=== PATIENT | female | born 1945 | race Caucasian/White ===

== ENCOUNTER → 2023-11-22 10:58 | Outpatient (REF) | payer MEDICARE, SELFPAY ==
[2023-11-22 12:13] LABS: % Basophils 0.8 % (0-2); % Immature Granulocytes 0.2 % (0-0.5); % Lymphocytes 28.3 % (20.5-51.1); % Neutrophils 57.7 % (42.2-75.2); Absolute Eosinophils 0.1 10^3/uL (0-0.7); Absolute Lymphocytes 1.4 10^3/uL (1.2-3.4); Absolute Monocytes 0.6 10^3/uL (0.1-0.6); Absolute Neutrophils 2.9 10^3/uL (1.4-6.5); Hematocrit 42.7 % (37.0-47.0); Hemoglobin 14.2 g/dL (12.0-16.0); Mean Corp Hgb Conc. 33.3 g/dL (33.0-37.0); Mean Corpuscular Hgb 31.2 pg (27.0-31.0); Mean Corpuscular Volume 93.8 fL (81.0-99.0); Mean Platelet Volume 11.2 fL (7.4-10.4); Nucleated Red Blood Cells % 0 %; Platelet Count 201 10^3/uL (130-400); Red Blood Cell Count 4.55 10^6/uL (4.20-5.40); Red Cell Dist. Width 13.8 % (11.5-14.5)
[2023-11-22 12:36] LABS: Erythrocyte Sed Rate 10 mm/hour (0-20)
[2023-11-22 12:42] LABS: ALT (SGPT) 25 U/L (0-35); AST (SGOT) 33 U/L (14-36); Albumin 4.1 g/dl (3.5-5.0); Alkaline Phosphatase 81 U/L (38-126); Blood Urea Nitrogen 15 mg/dl (7-17); Calcium 9.2 mg/dl (8.4-10.2); Carbon Dioxide 28 mmol/L (22-30); Chloride 106 mmol/L (98-107); Creatine Phosphokinase 289 U/L (30-135); Glucose 90 mg/dl (70-99); HDL Cholesterol 68 mg/dl; Iron 57 ug/dl (37-170); LDL Cholesterol, Calculated 102 mg/dl; Potassium 4.5 mmol/L (3.5-5.1); Sodium 137 mmol/L (135-145); Total Bilirubin 0.8 mg/dl (0.2-1.3); Total Cholesterol 182 mg/dl (50-199); Total Protein 6.7 g/dl (6.3-8.2); Triglyceride 63 mg/dl (10-149); Very Low Density Lipoprotein 12 mg/dl (0-30); eGFR > 60.00
[2023-11-22 12:46] LABS: Urine Albumin Negative (Neg - Trace); Urine Bilirubin Negative (Negative); Urine Character Clear (Clear); Urine Color Yellow; Urine Glucose Negative (Negative); Urine Ketone Negative (Negative); Urine Leukocyte Negative (Negative); Urine Nitrite Negative (Negative); Urine Occult Blood Negative (Negative); Urine Specific Gravity 1.015 (<1.030); Urine Urobilinogen Negative (Neg - 1+)
[2023-11-22 12:51] LABS: Percent Saturation 20 % (20-50); Total Iron Binding Capacity 275 ug/dl (265-497)
[2023-11-22 13:01] LABS: Vitamin D, 25-OH*** 51.1 ng/mL (30-80)
[2023-11-22 13:15] LABS: TSH Reflex To Free T4 1.87 uIU/ml (0.47-4.68)
[2023-11-22 13:19] LABS: Ferritin 47.2 ng/ml (11.1-264.0)
[2023-11-22 13:58] LABS: Folate > 20.0 ng/ml (2.76-20); Vitamin B12 826 pg/ml (239-931)
[2023-11-23 16:43] LABS: Syphilis/T. pallidum Ab Reflex Negative (Negative)
[2023-11-24 16:20] LABS: Lyme Antibody Screen, EIA Negative (Negative)
[2023-11-24 21:43] LABS: Myoglobin, Urine <1 mg/L (0-1)
[2023-11-24 22:44] LABS: Myoglobin, Serum 85 ng/mL (<=58)
[2023-11-25 05:10] LABS: ANA, IgG Reflex to HEp-2 None Detected (None Detected)
[2023-11-26 03:55] LABS: Albumin 4.22 g/dL (3.75-5.01); Alpha 1 Globulin 0.26 g/dL (0.19-0.46); Alpha 2 Globulin 0.64 g/dL (0.48-1.05); SPEP IFE Reflex Not Done
[2023-11-29 04:30] LABS: Aldolase 5.2 U/L (1.2-7.6)
== END ==
LOC: REG 10:58
PROVIDERS: ATTENDING PHYSICIAN Nurse Practitioner Primary Care
DX: I10 Essential (primary) hypertension (principal); R25.2 Cramp and spasm; R74.8 Abnormal levels of other serum enzymes; G57.93 Unspecified mononeuropathy of bilateral lower limbs; E55.9 Vitamin D deficiency, unspecified; R41.3 Other amnesia
CPT/HCPCS: 36415; 80053; 80061; 81003; 82085; 82306; 82550; 82607; 82728; 82746; 83540; 83550; 83874; 84155; 84165; 84443; 85025; 85652; 86038; 86140; 86618; 86780

== ENCOUNTER → 2023-11-27 11:04 | Outpatient (REF) | payer MEDICARE, SELFPAY | LOC: WDC 11:04 | PROVIDERS: ATTENDING PHYSICIAN Nurse Practitioner Primary Care; FAMILY PHYSICIAN Family Medicine | DX: Z12.31 Encounter for screening mammogram for malignant neoplasm of breast (principal); Z85.3 Personal history of malignant neoplasm of breast | CPT/HCPCS: 77063; 77067 ==

== ENCOUNTER → 2023-12-10 11:16 | Outpatient (REF) | payer MEDICARE, SELFPAY | LOC: RAD 11:16 | PROVIDERS: ATTENDING PHYSICIAN Nurse Practitioner Primary Care | DX: M85.80 Other specified disorders of bone density and structure, unspecified site (principal); M85.89 Other specified disorders of bone density and structure, multiple sites | CPT/HCPCS: 77080 ==

== ENCOUNTER → 2023-12-11 11:06 | Outpatient (REF) | payer MEDICARE, SELFPAY | LOC: RCS 11:06 | PROVIDERS: ATTENDING PHYSICIAN Nurse Practitioner Primary Care | DX: I77.810 Thoracic aortic ectasia (principal); I35.1 Nonrheumatic aortic (valve) insufficiency; I49.1 Atrial premature depolarization | CPT/HCPCS: 93306 ==

== ENCOUNTER → 2023-12-13 10:15 | Outpatient (REF) | payer MEDICARE, SELFPAY | LOC: RCS 10:15 | PROVIDERS: ATTENDING PHYSICIAN Nurse Practitioner Primary Care | DX: I10 Essential (primary) hypertension (principal); R00.2 Palpitations; I49.1 Atrial premature depolarization | CPT/HCPCS: 93225; 93226 ==

== ENCOUNTER → 2023-12-17 11:28 | Outpatient (REF) | payer MEDICARE, SELFPAY | LOC: PAVMRI 11:28 | PROVIDERS: ATTENDING PHYSICIAN Nurse Practitioner Primary Care | DX: Z85.3 Personal history of malignant neoplasm of breast (principal); G57.93 Unspecified mononeuropathy of bilateral lower limbs; R32 Unspecified urinary incontinence; R15.9 Full incontinence of feces; M54.16 Radiculopathy, lumbar region; M54.50 Low back pain, unspecified | CPT/HCPCS: 72158; A9575 ==

== ENCOUNTER → 2024-09-01 07:21 | Outpatient (REF) | payer MEDICARE, SELFPAY ==
[2024-09-01] MEDS: LEXISCAN 0.4 MG IV (10:04)
[2024-09-01] MEDS: AMINOPHYLLINE 75 MG IV (10:04)
[2024-09-01] MEDS: FLUSH (NSS) 1 FLUSH IV (10:05)
== END ==
LOC: RCS 07:21
PROVIDERS: ATTENDING PHYSICIAN Nurse Practitioner Primary Care
DX: E78.2 Mixed hyperlipidemia (principal); I49.1 Atrial premature depolarization; R07.89 Other chest pain
CPT/HCPCS: 78452; 93017; A9500; J2785

== ENCOUNTER → 2024-09-06 10:58 | Outpatient (REF) | payer MEDICARE, SELFPAY ==
[2024-09-06 13:01] LABS: % Basophils 1.2 % (0-2); % Eosinophils 2.6 % (0-6); % Lymphocytes 26.4 % (20.5-51.1); % Monocytes 10.5 % (1.7-9.3); % Neutrophils 59.3 % (42.2-75.2); Absolute Basophils 0.1 10^3/uL (0-0.2); Absolute Eosinophils 0.1 10^3/uL (0-0.7); Absolute Lymphocytes 1.3 10^3/uL (1.2-3.4); Absolute Monocytes 0.5 10^3/uL (0.1-0.6); Hematocrit 37.6 % (37.0-47.0); Hemoglobin 12.4 g/dL (12.0-16.0); Mean Corpuscular Hgb 31.2 pg (27.0-31.0); Mean Corpuscular Volume 94.7 fL (81.0-99.0); Mean Platelet Volume 11.5 fL (7.4-10.4); Nucleated Red Blood Cells % 0 %; Platelet Count 213 10^3/uL (130-400); Red Blood Cell Count 3.97 10^6/uL (4.20-5.40)
[2024-09-06 14:03] LABS: Erythrocyte Sed Rate 11 mm/hour (0-20)
[2024-09-06 14:13] LABS: ALT (SGPT) 23 U/L (0-35); AST (SGOT) 28 U/L (14-36); Alkaline Phosphatase 66 U/L (38-126); Blood Urea Nitrogen 20 mg/dl (7-17); Calcium 9.2 mg/dl (8.4-10.2); Carbon Dioxide 26 mmol/L (22-30); Chloride 104 mmol/L (98-107); Creatine Phosphokinase 217 U/L (30-135); Glucose 80 mg/dl (70-99); Potassium 4.5 mmol/L (3.5-5.1); Sodium 139 mmol/L (135-145); Total Bilirubin 0.7 mg/dl (0.2-1.3); Total Protein 6.4 g/dl (6.3-8.2); eGFR > 60.00
[2024-09-06 14:18] LABS: C-Reactive Protein < 5.00 mg/L (0.0-10.00)
[2024-09-06 14:21] LABS: Urine Albumin Negative (Neg - Trace); Urine Bilirubin Negative (Negative); Urine Character Clear (Clear); Urine Color Yellow; Urine Glucose Negative (Negative); Urine Ketone Negative (Negative); Urine Leukocyte Negative (Negative); Urine Nitrite Negative (Negative); Urine Occult Blood Negative (Negative); Urine Urobilinogen Negative (Neg - 1+)
[2024-09-06 14:35] LABS: Free T4 1.14 ng/dl (0.78-2.19); Vitamin D, 25-OH*** 29.2 ng/mL (30-80)
[2024-09-06 14:48] LABS: TSH 1.08 uIU/ml (0.47-4.68)
[2024-09-06 15:50] LABS: Protein/creatinine Ratio 0.1; Urine Protein 7 mg/dl
[2024-09-07 06:34] LABS: Complement C3 103 mg/dl (88-165)
[2024-09-07 13:47] LABS: Rheumatoid Agglutinin Less Than 10 IU (<10 IU)
[2024-09-08 11:36] LABS: HIV Combo Negative (Negative)
[2024-09-08 12:50] LABS: Quantiferon Mitogen minus NIL 7.34 IU/mL; Quantiferon NIL 0.02 IU/mL; Quantiferon Plus TB2 minus NIL 0.01 IU/mL (<=0.34); Quantiferon TB Gold Plus Negative (Negative)
[2024-09-08 14:31] LABS: Hepatitis B Surface Antigen Negative (Negative)
[2024-09-08 14:48] LABS: Hepatitis B Surface Antibody Negative; Hepatitis C Antibody Negative (Negative)
[2024-09-08 14:56] LABS: Hepatitis A Antibody, Total Negative (Negative)
[2024-09-08 18:25] LABS: CCP Antibody IgG/IgA 3 Units (0-19)
[2024-09-08 18:50] LABS: ds-DNA Ab, IgG Reflex To Titer 11 IU (0-24)
[2024-09-08 19:32] LABS: ANA, IgG Reflex to HEp-2 None Detected (None Detected)
[2024-09-08 19:37] LABS: Smith/RNP (ENA), IgG 2 Units (0-19)
[2024-09-08 22:31] LABS: Aldolase 4.2 U/L (1.2-7.6); Angiotensin-1-converting Enzym 36 U/L (16-85)
[2024-09-09 02:20] LABS: Myeloperoxidase Antibody 0 AU/mL (0-19); Serine Protease-3, IgG 0 AU/mL (0-19)
[2024-09-09 03:22] LABS: Centromere Antibody 0 AU/mL (0-40); SSA 52 (Ro)(ENA) Ab, IgG 1 AU/mL (0-40); SSA 60 (Ro)(ENA) Ab, IgG 0 AU/mL (0-40); SSB (La)(ENA) Ab, IgG 0 AU/mL (0-40); Scleroderma Antibody (Scl-70) 1 AU/mL (0-40)
[2024-09-09 08:42] LABS: Histone Antibody, IgG 0.2 Units (0.0-0.9)
== END ==
LOC: REG 10:58
PROVIDERS: ATTENDING PHYSICIAN Internal Medicine Rheumatology; FAMILY PHYSICIAN Nurse Practitioner Primary Care
DX: R74.8 Abnormal levels of other serum enzymes (principal); M79.10 Myalgia, unspecified site; M47.896 Other spondylosis, lumbar region; M15.0 Primary generalized (osteo)arthritis; M41.9 Scoliosis, unspecified; I10 Essential (primary) hypertension; R53.83 Other fatigue; E55.9 Vitamin D deficiency, unspecified; Z20.5 Contact with and (suspected) exposure to viral hepatitis; Z20.6 Contact with and (suspected) exposure to human immunodeficiency virus [HIV]; Z20.1 Contact with and (suspected) exposure to tuberculosis; Z79.899 Other long term (current) drug therapy
CPT/HCPCS: 36415; 80053; 81003; 82085; 82164; 82306; 82550; 82570; 83516; 84156; 84439; 84443; 85025; 85652; 86038; 86140; 86160; 86200; 86225; 86235; 86430; 86480; 86706; 86708; 86803; 87340; 87389

== ENCOUNTER → 2024-09-22 13:37 | Outpatient (REF) | payer MEDICARE, SELFPAY ==
[2024-09-22 16:04] LABS: Blood Urea Nitrogen 14 mg/dl (7-17); Calcium 9.5 mg/dl (8.4-10.2); Carbon Dioxide 26 mmol/L (22-30); Chloride 105 mmol/L (98-107); Glucose 77 mg/dl (70-99); Potassium 4.6 mmol/L (3.5-5.1); Sodium 141 mmol/L (135-145); eGFR > 60.00
[2024-09-25 06:59] LABS: IgG 858 mg/dl (700-1600)
[2024-09-25 07:16] LABS: IgA 264 mg/dl (70-400); IgM 45 mg/dl (40-230)
== END ==
LOC: REG 13:37
PROVIDERS: ATTENDING PHYSICIAN Nurse Practitioner Primary Care
DX: I10 Essential (primary) hypertension (principal); J06.9 Acute upper respiratory infection, unspecified
CPT/HCPCS: 36415; 80048; 82784

== ENCOUNTER → 2024-09-30 10:50 | Outpatient (REF) | payer MEDICARE, SELFPAY ==
[2024-09-30 11:45] LABS: NT-proBNP 351 pg/ml
[2024-09-30 11:48] LABS: Blood Urea Nitrogen 17 mg/dl (7-17); Calcium 9.6 mg/dl (8.4-10.2); Carbon Dioxide 29 mmol/L (22-30); Chloride 106 mmol/L (98-107); Glucose 80 mg/dl (70-99); Potassium 4.1 mmol/L (3.5-5.1); Sodium 142 mmol/L (135-145); eGFR > 60.00
== END ==
LOC: REG 10:50
PROVIDERS: ATTENDING PHYSICIAN Nurse Practitioner Primary Care; REFERRING PHYSICIAN Internal Medicine Cardiovascular Disease
DX: R06.89 Other abnormalities of breathing (principal); R60.0 Localized edema
CPT/HCPCS: 36415; 71046; 80048; 83880

== ENCOUNTER → 2024-10-03 13:40 | Outpatient (REF) | payer MEDICARE, SELFPAY | LOC: RAD 13:40 | PROVIDERS: ATTENDING PHYSICIAN Nurse Practitioner Primary Care | DX: M79.605 Pain in left leg (principal); M79.89 Other specified soft tissue disorders | CPT/HCPCS: 93970 ==

== ENCOUNTER → 2024-12-04 11:18 | Outpatient (REF) | payer MEDICARE, SELFPAY | LOC: WDC 11:18 | PROVIDERS: ATTENDING PHYSICIAN Nurse Practitioner Primary Care | DX: Z12.31 Encounter for screening mammogram for malignant neoplasm of breast (principal) | CPT/HCPCS: 77063; 77067 ==

== ENCOUNTER 2024-12-14 12:58 | Outpatient (RCR) | payer MEDICARE, SELFPAY | END 2024-12-14 23:59 | disposition home or self-care (01) | LOC: RPT 12:58 | PROVIDERS: ATTENDING PHYSICIAN Pain Medicine Interventional Pain Medicine; FAMILY PHYSICIAN Nurse Practitioner Primary Care | DX: M54.16 Radiculopathy, lumbar region (principal); Z73.6 Limitation of activities due to disability; R26.89 Other abnormalities of gait and mobility; G89.29 Other chronic pain | CPT/HCPCS: 97110; 97163; 97530 ==

== ENCOUNTER 2025-01-15 10:08 | Outpatient (RCR) | payer MEDICARE, SELFPAY | END 2025-01-15 23:59 | disposition home or self-care (01) | LOC: RPT 10:08 | PROVIDERS: ATTENDING PHYSICIAN Pain Medicine Interventional Pain Medicine; FAMILY PHYSICIAN Nurse Practitioner Primary Care | DX: M54.16 Radiculopathy, lumbar region (principal); Z73.6 Limitation of activities due to disability; R26.89 Other abnormalities of gait and mobility; G89.29 Other chronic pain; M51.16 Intervertebral disc disorders with radiculopathy, lumbar region | CPT/HCPCS: 97110; 97112 ==

== ENCOUNTER 2025-02-13 09:20 | Outpatient (RCR) | payer MEDICARE, SELFPAY | END 2025-02-13 23:59 | disposition home or self-care (01) | LOC: RPT 09:20 | PROVIDERS: ATTENDING PHYSICIAN Nurse Practitioner; FAMILY PHYSICIAN Nurse Practitioner Primary Care | DX: N39.46 Mixed incontinence (principal); R15.9 Full incontinence of feces; Z73.6 Limitation of activities due to disability; G62.9 Polyneuropathy, unspecified; M54.9 Dorsalgia, unspecified; Z85.3 Personal history of malignant neoplasm of breast | CPT/HCPCS: 97110; 97161; 97530 ==

== ENCOUNTER 2025-02-13 12:02 | Outpatient (RCR) | payer MEDICARE, SELFPAY | END 2025-02-13 23:59 | disposition home or self-care (01) | LOC: RPT 12:02 | PROVIDERS: ATTENDING PHYSICIAN Pain Medicine Interventional Pain Medicine; FAMILY PHYSICIAN Nurse Practitioner Primary Care | DX: M54.16 Radiculopathy, lumbar region (principal); R26.89 Other abnormalities of gait and mobility (principal); G89.29 Other chronic pain; Z73.6 Limitation of activities due to disability; M51.16 Intervertebral disc disorders with radiculopathy, lumbar region | CPT/HCPCS: 97110; 97112 ==

== ENCOUNTER 2025-03-14 13:11 | Outpatient (RCR) | payer MEDICARE, SELFPAY | END 2025-03-14 23:59 | disposition home or self-care (01) | LOC: RPT 13:11 | PROVIDERS: ATTENDING PHYSICIAN Nurse Practitioner; FAMILY PHYSICIAN Nurse Practitioner Primary Care | DX: N39.46 Mixed incontinence (principal); R15.9 Full incontinence of feces; Z73.6 Limitation of activities due to disability; G62.9 Polyneuropathy, unspecified; Z85.3 Personal history of malignant neoplasm of breast | CPT/HCPCS: 97110; 97112; 97530 ==

== ENCOUNTER 2025-04-11 13:07 | Outpatient (RCR) | payer MEDICARE, SELFPAY | END 2025-04-11 23:59 | disposition home or self-care (01) | LOC: RPT 13:07 | PROVIDERS: ATTENDING PHYSICIAN Nurse Practitioner; FAMILY PHYSICIAN Nurse Practitioner Primary Care | DX: N39.46 Mixed incontinence (principal); R15.9 Full incontinence of feces; Z73.6 Limitation of activities due to disability; G62.9 Polyneuropathy, unspecified; Z85.3 Personal history of malignant neoplasm of breast | CPT/HCPCS: 97110; 97112 ==

== ENCOUNTER 2025-05-02 13:21 | Outpatient (RCR) | payer MEDICARE, SELFPAY | END 2025-05-02 23:59 | disposition home or self-care (01) | LOC: RPT 13:21 | PROVIDERS: ATTENDING PHYSICIAN Nurse Practitioner; FAMILY PHYSICIAN Nurse Practitioner Primary Care | DX: N39.46 Mixed incontinence (principal); R15.9 Full incontinence of feces; Z73.6 Limitation of activities due to disability; G62.9 Polyneuropathy, unspecified; Z85.3 Personal history of malignant neoplasm of breast | CPT/HCPCS: 97110; 97112 ==

== ENCOUNTER 2025-05-22 13:17 | Outpatient (RCR) | payer MEDICARE, SELFPAY | END 2025-05-22 23:59 | disposition home or self-care (01) | LOC: RPT 13:17 | PROVIDERS: ATTENDING PHYSICIAN Nurse Practitioner; FAMILY PHYSICIAN Nurse Practitioner Primary Care | DX: N39.46 Mixed incontinence (principal); R15.9 Full incontinence of feces; Z73.6 Limitation of activities due to disability; G62.9 Polyneuropathy, unspecified; Z85.3 Personal history of malignant neoplasm of breast | CPT/HCPCS: 97014; 97110; 97112; 97140 ==

== ENCOUNTER 2025-07-06 14:06 | Outpatient (RCR) | payer MEDICARE, SELFPAY | END 2025-07-06 23:59 | disposition home or self-care (01) | LOC: RPT 14:06 | PROVIDERS: ATTENDING PHYSICIAN Nurse Practitioner; FAMILY PHYSICIAN Nurse Practitioner Primary Care | DX: N39.46 Mixed incontinence (principal); R15.9 Full incontinence of feces; Z73.6 Limitation of activities due to disability; G62.9 Polyneuropathy, unspecified; Z85.3 Personal history of malignant neoplasm of breast | CPT/HCPCS: 97110; 97140; 97530 ==

== ENCOUNTER → 2025-07-13 09:52 | Outpatient (REF) | payer MEDICARE, SELFPAY ==
[2025-07-13 11:42] LABS: Hematocrit 39.7 % (37.0-47.0); Hemoglobin 13.1 g/dL (12.0-16.0); Mean Corp Hgb Conc. 33.0 g/dL (33.0-37.0); Mean Corpuscular Volume 96.8 fL (81.0-99.0); Nucleated Red Blood Cells % 0 %; Platelet Count 186 10^3/uL (130-400); Red Cell Dist. Width 13.1 % (11.5-14.5)
[2025-07-13 12:11] LABS: ALT (SGPT) 27 U/L (0-35); AST (SGOT) 29 U/L (14-36); Albumin 4.4 g/dl (3.5-5.0); Alkaline Phosphatase 58 U/L (38-126); Blood Urea Nitrogen 15 mg/dl (7-17); Calcium 9.5 mg/dl (8.4-10.2); Carbon Dioxide 29 mmol/L (22-30); Chloride 104 mmol/L (98-107); Glucose 80 mg/dl (70-99); HDL Cholesterol 71 mg/dl; LDL Cholesterol, Calculated 101 mg/dl; Potassium 4.5 mmol/L (3.5-5.1); Sodium 138 mmol/L (135-145); Total Protein 7.1 g/dl (6.3-8.2); Very Low Density Lipoprotein 13 mg/dl (0-30); eGFR > 60.00
[2025-07-13 12:28] LABS: Vitamin D, 25-OH*** 71.3 ng/mL (30-80)
[2025-07-13 13:01] LABS: Vitamin B12 970 pg/ml (239-931)
== END ==
LOC: RAD 09:52
PROVIDERS: ATTENDING PHYSICIAN Obstetrics & Gynecology; OTHER PHYSICIAN Nurse Practitioner; OTHER PHYSICIAN Nurse Practitioner Primary Care
DX: R14.0 Abdominal distension (gaseous) (principal); N39.46 Mixed incontinence; E78.2 Mixed hyperlipidemia; E53.8 Deficiency of other specified B group vitamins; E55.9 Vitamin D deficiency, unspecified; Z85.3 Personal history of malignant neoplasm of breast; I77.810 Thoracic aortic ectasia; I35.1 Nonrheumatic aortic (valve) insufficiency; G57.93 Unspecified mononeuropathy of bilateral lower limbs
CPT/HCPCS: 36415; 76770; 76856; 80053; 80061; 82306; 82607; 84443; 85025

== ENCOUNTER 2025-09-06 17:59 | Outpatient (RCR) | payer MEDICARE, SELFPAY | END 2025-09-06 23:59 | disposition home or self-care (01) | LOC: RPT 17:59 | PROVIDERS: ATTENDING PHYSICIAN Nurse Practitioner; FAMILY PHYSICIAN Nurse Practitioner Primary Care | DX: N39.46 Mixed incontinence (principal); R15.9 Full incontinence of feces; Z73.6 Limitation of activities due to disability; G62.9 Polyneuropathy, unspecified; Z85.3 Personal history of malignant neoplasm of breast | CPT/HCPCS: 97110; 97140; 97530 ==

== ENCOUNTER → 2025-10-08 14:07 | Outpatient (REF) | payer MEDICARE, SELFPAY | LOC: RAD 14:07 | PROVIDERS: ATTENDING PHYSICIAN Nurse Practitioner Primary Care | DX: I77.810 Thoracic aortic ectasia (principal) | CPT/HCPCS: 71275; Q9967 ==

== ENCOUNTER 2025-10-12 13:41 | Outpatient (RCR) | payer MEDICARE, SELFPAY | END 2025-10-12 23:59 | disposition home or self-care (01) | LOC: RPT 13:41 | PROVIDERS: ATTENDING PHYSICIAN Nurse Practitioner; FAMILY PHYSICIAN Nurse Practitioner Primary Care | DX: N39.46 Mixed incontinence (principal); R15.9 Full incontinence of feces; Z73.6 Limitation of activities due to disability; G62.9 Polyneuropathy, unspecified; Z85.3 Personal history of malignant neoplasm of breast | CPT/HCPCS: 97110; 97112; 97140 ==